=== PATIENT | female | born 1985 | race Caucasian/White ===

== ENCOUNTER 2017-11-30 01:29 | Emergency (ER) | payer MEDICAID ==
[~2017-11-30] VITALS: Ht 165.1 cm; Wt 83.8 kg
[2017-11-30] MEDS ORDERED: DIPHENHYDRAMINE 50 MG/ML, 1ML ONE (01:58)
[2017-11-30] MEDS ORDERED: PROCHLORPERAZINE 5 MG/ML, 2ML ONE (01:59)
[2017-11-30] MEDS ORDERED: KETOROLAC 30 MG/1 ML ONE (01:59)
[2017-11-30] MEDS ORDERED: PROCHLORPERAZINE 5 MG/ML, 2ML IM ONE (02:00)
[2017-11-30] MEDS ORDERED: DIPHENHYDRAMINE 50 MG/ML, 1ML IM ONE (02:00)
[2017-11-30] MEDS ORDERED: KETOROLAC 30 MG/1 ML IM ONE (02:00)
[2017-11-30 02:24] VITALS: BP 116/70
== END 2017-11-30 02:38 | disposition home or self-care (01) ==
LOC: ED 02:10
DX: G43.909 Migraine, unspecified, not intractable, without status migrainosus (principal)
CPT/HCPCS: 96372; 99284; J0780; J1200; J1885

== ENCOUNTER 2018-03-13 23:51 | Emergency (ER) | payer MEDICAID ==
[2018-03-14 00:25] LABS: BASOPHILS # (AUTO) 0.06 x10^3/uL (0-0.1); BASOPHILS % (AUTO) 1 % (0-1); EOSINOPHILS # (AUTO) 0.42 x10^3/uL (0-0.4); EOSINOPHILS % (AUTO) 4 % (1-7); LYMPHOCYTES # (AUTO) 2.61 x10^3/uL (1-3.4); LYMPHOCYTES % (AUTO) 22 % (22-44); MD NO; MEAN CORPUSCULAR HEMOGLOBIN 30.9 pg (27.0-34.8); MEAN CORPUSCULAR HGB CONC 34.5 g/dL (32.4-35.8); MEAN CORPUSCULAR VOLUME 89.8 fL (80-100); MEAN PLATELET VOLUME 8.4 fL (7.4-10.4); MONOCYTES # (AUTO) 0.78 x10^3/uL (0.2-0.8); MONOCYTES % (AUTO) 7 % (2-9); NEUTROPHILS % (AUTO) 68 % (42-75); PLATELET COUNT 422 x10^3/uL (130-400); RED BLOOD COUNT 4.71 x10^6/uL (3.82-5.3); RED CELL DISTRIBUTION WIDTH 13.3 % (9.6-15.2)
[2018-03-14] MEDS ORDERED: ONDANSETRON 2MG/ML, 2ML IVPush ONE (00:30)
[2018-03-14] MEDS ORDERED: KETOROLAC 30 MG/1 ML IVPush ONE (00:30)
[2018-03-14] MEDS ORDERED: KETOROLAC 30 MG/1 ML ONE (00:32)
[2018-03-14] MEDS ORDERED: ONDANSETRON 2MG/ML, 2ML ONE (00:32)
[2018-03-14 00:37] LABS: ALANINE AMINOTRANSFERASE 32 U/L (12-78); ALBUMIN 3.9 g/dL (3.4-5.0); ANION GAP 9 mmol/L (5-15); CALCIUM 8.8 mg/dL (8.5-10.1); CHLORIDE 109 mmol/L (98-107); CREATININE 0.79 mg/dL (0.55-1.02)
[2018-03-14 00:40] LABS: ALKALINE PHOSPHATASE 66 U/L (45-117); BILIRUBIN,TOTAL 0.3 mg/dL (0.2-1.0); TOTAL PROTEIN 7.6 g/dL (6.4-8.2)
[2018-03-14 00:42] VITALS: BP 118/64
[2018-03-14 01:32] LABS: HCG UR SG 1.032 (1.003-1.030); MICROSCOPIC AUTO
[2018-03-14 01:35] LABS: CULTURE INDICATED? YES
== END 2018-03-14 01:57 | disposition home or self-care (01) ==
LOC: ED 03-14 00:07
DX: N30.01 Acute cystitis with hematuria (principal)
CPT/HCPCS: 36415; 76830; 80053; 81001; 81025; 83690; 85025; 87077; 87086; 87186; 96374; 96375; 99284; J1885; J2405

== ENCOUNTER 2018-04-18 10:16 | Emergency (ER) | payer MEDICAID ==
[~2018-04-18] VITALS: Ht 165.1 cm; Wt 83.6 kg
[2018-04-18 10:21] VITALS: BP 120/80
[2018-04-18] MEDS ORDERED: IBUPROFEN 200 MG TABLET ONE (10:36)
[2018-04-18] MEDS ORDERED: IBUPROFEN 200 MG TABLET PO ONE (11:00)
--- NOTE | 2018-04-18 11:30 | NUR ---
Patient/Caregiver given discharge instructions and they have confirmed that they understand the instructions. ALIX wrap applied by EMT, CMS intact. Patient educated/demonstrates proper use of crutches. Patient ambulatory with steady gait with crutches.
== END 2018-04-18 11:32 | disposition home or self-care (01) ==
LOC: ED 11:04
DX: S83.92XA Sprain of unspecified site of left knee, initial encounter (principal); J45.909 Unspecified asthma, uncomplicated; F17.200 Nicotine dependence, unspecified, uncomplicated; X50.0XXA Overexertion from strenuous movement or load, initial encounter; Y93.89 Activity, other specified; Y92.89 Other specified places as the place of occurrence of the external cause; Y99.8 Other external cause status
CPT/HCPCS: 99283